=== PATIENT | female | born 1975 | race Caucasian/White ===

== ENCOUNTER 2017-06-09 07:42 | Day surgery (SDC) | payer BC ==
[~2017-06-09 07:42] MED LIST: Lactated Ringers 1,000 ML IV SCH
[2017-06-09] MEDS ORDERED: fentaNYL 100 MCG/2 ML SDV ONE (08:33)
[2017-06-09] MEDS ORDERED: Propofol 200 MG/20 ML SDV ONE ×2 (08:33→09:35)
--- NOTE | 2017-06-09 11:10 | OR ---
PREOPERATIVE DIAGNOSIS: Rectal bleeding. POSTOPERATIVE DIAGNOSIS: Internal hemorrhoids; otherwise, normal colonoscopic exam. PROCEDURE PROPOSED: Total flexible colonoscopy. PROCEDURE DONE: 1. Total flexible colonoscopy. 2. Lighted anoscopy. INDICATION: This is a 41-year-old female bothered with intermittent bright red blood per rectum for about the past 6 months. She denies any anal pain. She states she did have some hemorrhoids during childbirth. Otherwise, she has had no change in her bowel pattern, comes in now for recommended colonoscopy. TECHNIQUE: The patient brought to the endoscopy suite, placed in left lateral decubitus position. She was sedated per PHERESIS SPECIALIST with propofol. The flexible video colonoscope was then passed transanally, and under visualization, advanced to the cecum, confirmed with the ileocecal valve visualization. Examination revealed a normal ascending, transverse, descending, sigmoid, and rectal colon. There was no evidence of any colitis, polyps, diverticulosis, or any other abnormalities. In the anal canal, it appeared that she did have some mild internal hemorrhoids and I felt that I would do a lighted anoscopy to get better visualization. After removing the colonoscope, the lighted anoscope was then inserted and I did a 3-quadrant evaluation of the hemorrhoids and she seemed to have some mild internal hemorrhoids with some mild friability, but no bleeding, they did not appear to be large enough to do any banding. I felt that we would treat her conservatively initially, and the procedure was then terminated. IMPRESSION: Mild internal hemorrhoids; otherwise, normal colonoscopic exam. PLAN: Anusol HC suppositories nightly for 10 nights in a row. Repeat as needed and she was recommended to return to the clinic, if the bleeding persists for re- evaluation in the clinic and possible hemorrhoid banding at that time. SCM: 06/09/2017 09:46:11 MODL: 06/09/2017 10:53:12 /[id number]
== END 2017-06-09 10:55 | disposition home or self-care (01) ==
LOC: VM.SDS 07:42
PROVIDERS: ATTEND Surgery
DX: K64.8 Other hemorrhoids (principal)
CPT/HCPCS: 45378; J2704; J3010; J7120